=== PATIENT | male | born 1995 | race Two or more races ===

== ENCOUNTER 2024-02-09 04:05 | Emergency (ER) | payer OTHER ==
[~2024-02-09] VITALS: Ht 167.6 cm; Wt 85.0 kg
[2024-02-09 04:32] VITALS: TEMP 97.5
[2024-02-09 07:12] VITALS: BP 124/77; PULSE 87; RESP 16; O2SAT 100
== END 2024-02-09 07:39 | disposition home or self-care (01) ==
LOC: ER 04:06
DX: F10.129 Alcohol abuse with intoxication, unspecified (principal); R11.10 Vomiting, unspecified; Y90.9 Presence of alcohol in blood, level not specified
CPT/HCPCS: 99285